=== PATIENT | female | born 1995 | race African-American/Black ===

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

== ENCOUNTER 2017-02-04 11:28 | Inpatient (IN) | payer MEDICAID ==
[2017-02-04] MEDS: PENICILLIN G POTASSIUM 2,500,000 UNIT in DEXTROSE 5%-WATER 50 ML IV SCH ×4 (04:19→21:23)
[2017-02-04 12:14] LABS: AMNISURE (ROM) POSITIVE (NEGATIVE)
[2017-02-04 12:16] LABS: APPEARANCE,URINE SLIGHTLY-CLOUDY; BILIRUBIN,URINE NEGATIVE (NEGATIVE); GLUCOSE, URINE 50 mg/dL (NEGATIVE); KETONES,URINE NEGATIVE (NEGATIVE); LEUKOCYTE ESTERASE,URINE LARGE (NEGATIVE); NITRITE,URINE NEGATIVE (NEGATIVE); PROTEIN,URINE 30 mg/dL (NEGATIVE)
[2017-02-04] MEDS ORDERED: PENICILLIN G-K 5 MILLION UNIT VIAL ONE ×3 (12:17→21:18)
[2017-02-04] MEDS ORDERED: RINGERS SOLUTION,LACTATED 1,000 ML IV PRN (12:17)
[2017-02-04] MEDS ORDERED: PENICILLIN G POTASSIUM 5,000,000 UNIT in DEXTROSE 5%-WATER 100 ML IV ONE (12:17)
[2017-02-04] MEDS ORDERED: LIDOCAINE 1% INJ-PF (10 MG/ML) 30 ML SDV ONE (12:17)
[2017-02-04] MEDS ORDERED: RINGERS SOLUTION,LACTATED 1,000 ML IV ONE (12:17)
[2017-02-04] MEDS ORDERED: OXYTOCIN/NORMAL SALINE 20 UNIT/1,000 ML RTUINJ ONE (12:17)
[2017-02-04] MEDS ORDERED: MISOPROSTOL 0.2 MG TABLET ONE (12:17)
[2017-02-04 12:56] LABS: URINE BARBITURATES SCREEN NEGATIVE; URINE METHADONE SCREEN NEGATIVE; URINE OPIATES LOW NEGATIVE; URINE PHENCYCLIDINE SCREEN NEGATIVE
[2017-02-04 13:17] LABS: ABSOLUTE LYMPHOCYTES (AUTO) 1.5 10^3/uL (0.5-4.7); ABSOLUTE MONOCYTES (AUTO) 0.8 10^3/uL (0.1-1.4); ABSOLUTE NEUT (AUTO) 8.4 10^3/uL (1.7-8.2); BASOPHILS % (AUTO) 0.3 % (0-2); EOSINOPHILS % (AUTO) 0.2 % (0-6); HEMATOCRIT 35.7 % (36.0-47.0); HEMOGLOBIN 11.8 g/dL (12.0-15.5); HGB HCT DIFFERENCE -0.3; LYMPHOCYTES % (AUTO) 14.2 % (13-45); MEAN CORPUSCULAR HEMOGLOBIN 27.2 pg (27.0-33.4); MEAN CORPUSCULAR HGB CONC 33.2 g/dL (32.0-36.0); MEAN CORPUSCULAR VOLUME 82 fl (80-97); MONOCYTES % (AUTO) 7.8 % (3-13); RED BLOOD COUNT 4.36 10^6/uL (3.72-5.28); RED CELL DISTRIBUTION WIDTH 12.7 % (11.5-14.0); SEGMENTED NEUTROPHILS % (AUTO) 77.5 % (42-78); WHITE BLOOD COUNT 10.8 10^3/uL (4.0-10.5)
[2017-02-04] MEDS ORDERED: FENTANYL/BUPIVACAINE/NS/PF 200 MCG/100 ML RTUINJ EPI ONE ×2 (17:47→23:42)
[2017-02-04] MEDS ORDERED: BUPIVACAINE HCL 0.25 % INJ/PF (2.5 MG/1 ML) 30 ML VIAL ONE (17:47)
[2017-02-04] MEDS ORDERED: EPHEDRINE SULFATE INJ 50 MG/1 ML AMPULE ONE (17:47)
[2017-02-04] MEDS ORDERED: FENTANYL CITRATE INJ/PF 100 MCG/2 ML AMPUL ONE (17:48)
--- NOTE | 2017-02-04 23:34 | L&D Progress Notes ---
PROGRESS NOTES Datetime Report Generated by CPN: 02/04/2017 23:34 PROGRESS NOTE Impression: Normal Progression of Labor Impression: Reassuring Heart Rate; Rupture of Membranes Procedures: Sterile Vag Exam Procedures: Sterile Vag Exam Plan: Continue Present Management Plan: Augmentation Plan Other: Hold Pitocin at 1mU for now Vital Signs : Reviewed; Within Normal Limits Vital Signs : Reviewed; Within Normal Limits Comment: FHR 125, moderate variability, cat II, cephalic, external US Comment: FHR 145, moderate variability, +accels, -decels, cat I, External US. VAGINAL EXAM Dilatation: 7 Dilatation: 3 Effacement: 90 Effacement: 90 Station: 0 Station: -2 Contractions: q 2-4 min Contractions: q 1-4 min MEMBRANES Membranes: Ruptured Membranes: Ruptured Amniotic Fluid Color: Clear FETUS A FHR - Baseline: 125 FHR - Baseline: 145 Monitoring: External US Monitoring: External US Variability: Moderate 6-25bpm Variability: Moderate 6-25bpm Accelerations: 10X10 Accelerations: 15X15 Decelerations: None Decelerations: None FHR Category: Category II FHR Category: Category I Presentation: Vertex SIGNATURE SIGNATURE: [id number] Signature: with User ID: [email or web address]
[2017-02-05] MEDS ORDERED: TERBUTALINE SULFATE INJ/PF 1 MG/1 ML SDV ONE (00:16)
[2017-02-05] MEDS ORDERED: TERBUTALINE SULFATE INJ/PF 1 MG/1 ML SDV SUBCUT ONE ×2 (00:27→00:31)
--- NOTE | 2017-02-05 00:36 | L&D Progress Notes ---
PROGRESS NOTES Datetime Report Generated by CPN: 02/05/2017 00:36 PROGRESS NOTE Impression: Normal Progression of Labor Impression Other: Variable decels with contractions Procedures: Sterile Vag Exam Plan Other: Discontinue Pitocin. Given Terb 0.25mg x 1 dose. Vital Signs : Reviewed; Within Normal Limits Comment: FHR 120, moderate variability, variable decels with contractions, cat II. Hold Pitocin for now until FHR recovers. FHR improved with decreasing contraction frequency. Cont to monitor closely. VAGINAL EXAM Dilatation: 7 Effacement: 90 Station: 0 Contractions: q 2-4 min MEMBRANES Membranes: Ruptured FETUS A FHR - Baseline: 120 Monitoring: External US Variability: Moderate 6-25bpm Accelerations: 15X15 Decelerations: Variable FHR Category: Category II FETUS C SIGNATURE: [id number] Signature: with User ID: [email or web address]
[2017-02-05] MEDS ORDERED: METHYLERGONOVINE MALEATE INJ/PF 0.2 MG/1 ML AMPULE ONE (04:52)
[2017-02-05] MEDS ORDERED: CARBOPROST TROMETHAMINE INJ 250 MCG/1 ML AMPULE ONE (04:52)
[2017-02-05] MEDS ORDERED: LOPERAMIDE HCL 2 MG CAPSULE ONE (04:53)
[2017-02-05] MEDS ORDERED: CARBOPROST TROMETHAMINE INJ 250 MCG/1 ML AMPULE IM PRN (05:06)
[2017-02-05] MEDS ORDERED: OXYTOCIN/NORMAL SALINE 20 UNIT/1,000 ML RTUINJ IV PRN (05:06)
[2017-02-05] MEDS ORDERED: MEASLES,MUMPS&RUBELLA VACC/PF 0.5 ML VIAL SUBCUT PRN (05:06)
[2017-02-05] MEDS ORDERED: DIPH/PERTUSS(ACELL)/TETANUS VAC/PF 0.5 ML SYR (>=10YO) IM PRN (05:06)
[2017-02-05] MEDS ORDERED: HYDROCODONE/ACETAMINOPHEN 5-325 MG TABLET PO PRN (05:06)
[2017-02-05] MEDS ORDERED: BENZOCAINE/MENTHOL AEROSOL SPRAY 56 ML TOP PRN (05:06)
[2017-02-05] MEDS ORDERED: ACETAMINOPHEN WITH CODEINE #3 TABLET PO PRN ×2 (05:06)
[2017-02-05] MEDS ORDERED: DIBUCAINE 1% OINTMENT 28 GM TP PRN (05:06)
[2017-02-05] MEDS ORDERED: ZOLPIDEM TARTRATE 5 MG TABLET PO PRN (05:06)
[2017-02-05] MEDS ORDERED: MISOPROSTOL 0.2 MG TABLET PR PRN (05:06)
[2017-02-05] MEDS ORDERED: ONDANSETRON HCL INJ/PF 4 MG/2 ML SDV ONE (05:07)
[2017-02-05] MEDS ORDERED: PROMETHAZINE HCL 25 MG TABLET PO PRN (05:09)
[2017-02-05] MEDS ORDERED: DIPHENHYDRAMINE HCL 25 MG CAPSULE PO PRN (05:10)
[2017-02-05] MEDS ORDERED: ONDANSETRON HCL 8 MG TABLET PO PRN (05:10)
--- NOTE | 2017-02-05 06:48 | Delivery Summary ---
Del Sum A-C Datetime Report Generated by CPN: 02/05/2017 06:47 DELIVERY PERSONNEL DELIVERY PERSONNEL: [id number] Delivery Doctor:: Ximena Wolf MD Labor and Delivery Nurse:: Monse Otero RNbookmobile librarian Nurse:: Ana Woodard RN Nursery Nurse:: Alessandra Braswell RN Nursery Nurse:: Alessandra Torres RN Field Map Editor/ARTS AND CRAFTS TEACHER: Wili Ertel, ARTS AND CRAFTS TEACHER MATERNAL INFORMATION Delivery Anesthesia: Epidural Medications During Delivery: Cytotec, Hemabate Medications After Delivery: Pitocin Bolus-Please Comment Meds After Delivery Comment: hemabate 250 Estimated Blood Loss (ml): 500 Maternal Complications: Premature Rupture of Membranes Provider Comments: Pt C_P. Head delivered OA. Anterior and posterior shoulder delivered followed by rest of body. Baby placed on mom's abdomen. After 1min, cord clamped x 2 and cut. Placenta delivered intact with 3VC. No lacs noted. PPH occurred with 500ml blood loss. Cytotec 1000mcg CA given and Hemabate IM given. Fundus firm and bleeding minimal after aggressive fundal massage. LABOR SUMMARY EDC: 02/06/2017 00:00 No. Babies in Womb: 1 Attempted: No Labor Anesthesia: Epidural LABOR INFORMATION Reason for Induction: Premature Rupture of Membranes Onset of Labor: 02/04/2017 20:58 Complete Dilatation: 02/05/2017 03:13 Oxytocin: Augmentation Group B Beta Strep: positive Antibiotics # of Doses: 3 (Annotations: Data stored by N on behalf of user) Antibiotics Time of Last Dose: 2114 Name of Antibiotic Given: pcn Steroids Given: None Reason Steroids Not Administered: Not Applicable MEMBRANES Membranes Rupture Method: Spontaneous Rupture of Membranes: 02/04/2017 00:01 Length of Rupture (hr): 28.63 Amniotic Fluid Color: Clear Amniotic Fluid Amount: Small Amniotic Fluid Odor: Normal STAGES OF LABOR Stage 1 hr: 6 Stage 1 min: 15 Stage 2 hr: 1 Stage 2 min: 26 Stage 3 hr: 0 Stage 3 min: 3 Total Time in Labor hr: 7 Total Time in Labor min: 44 VAGINAL DELIVERY Episiotomy: None Laceration #1: None Laceration Extension #1: N/A Laceration Repair: Not Applicable Sponge Count Correct: N/A Sharps Count Correct: N/A CSECTION DELIVERY Primary Indication: N/A Secondary Indication: N/A CSection Incidence: N/A Labor: N/A Elective: N/A CSection Incision: N/A BABY A INFORMATION Infant Delivery Date/Time: 02/05/2017 04:39 Method of Delivery: Vaginal Born in Route : No : N/A Forceps: N/A Vacuum Extraction: N/A Shoulder Dystocia : No PRESENTATION/POSITION BABY A Presentation: Cephalic Cephalic Presentation: Vertex Vertex Position: Right Occipital Anterior Breech Presentation: N/A PLACENTA INFORMATION BABY A Placenta Delivery Time : 02/05/2017 04:42 Placenta Method of Delivery: Spontaneous Placenta Status: Delivered SCORES BABY A Heart Rate 1 min: >100 bpm Resp Effort 1 min: Good Cry Reflex Irritability 1 min: Cough or Sneeze or Pulls Away Muscle Tone 1 min: Active Motion Color 1 min: Body [place], Extremities Blue SCORE 1 MIN: 9 Heart Rate 5 min: >100 bpm Resp Effort 5 min: Good Cry Reflex Irritability 5 min: Cough or Sneeze or Pulls Away Muscle Tone 5 min: Active Motion Color 5 min: Body [place], Extremities Blue SCORE 5 MIN: 9 INFORMATION BABY A Gestational Age at Delivery: 39.6 Gestational Status: Full Term- 39- 40.6 Weeks Outcome : Liveborn Condition : Stable Sex: Male IDENTIFICATION BABY A Infant Verification Date/Time: 02/05/2017 04:44 ID Band Number: [id number] Mother's Name Verified: Yes RN Verifying : Becky Del Real RN Additional Verifying Personnel: Shanique David RN WEIGHT/LENGTH BABY A Birthweight (gm): 3150 Infant Weight (lb): 6 Weight (oz): 15 Length (in): 21.25 Length (cm): 53.98 CORD INFORMATION BABY A No. Cord Vessels: 3 Nuchal Cord : N/A Cord Blood Taken: Yes-For Eval (Mom's Blood Type - or O+) Suction: Mouth; Nose ASSESSMENT BABY A Complications: Multiple Late Decels Physical Findings at Delivery: Caput Succedaneum; Molding of the Head Infant Respirations: Appears Normal Skin to Skin: Yes Supervisor Assembling/ALS Called : No Infant Care By: Gerald Ring RN, L Torres RN Transferred To: Remains with Mother SIGNATURES Signature: with User ID: [email or web address]
--- NOTE | 2017-02-05 07:25 | Admission Physical ---
Datetime Report Generated by CPN: 02/05/2017 07:25 CURRENT ADMISSION Chief Complaint: Suspected Ruptured Membranes Indication for Induction: Not Applicable Indication for Induction: Term, Intrauterine ; No Active Labor; Ruptured Membranes Admit Plan: Admit to Unit; Initiate Labor Protocol; Initiate Labor Augmentation Protocol ALLERGIES Medication Allergies: Yes Medication Allergies: tramadol HCl (12/31/2016) Medication Allergies: tramadol HCl (04/24/2016) Latex: No Latex Allergies Food Allergies: N/A Environmental Allergies: Dust/Pollen OBSTETRICAL HISTORY EDC: 02/06/2017 00:00 : 1 Para: 0 Term: 0 : 0 SAB: 0 IAB: 0 Ectopic: 0 Livin Cesareans: 0 VBACs: 0 Multiple Births: 0 Gestational Diabetes: No Rh Sensitization: No Incompetent Cervix: No JUAN: No Infertility: No ART Treatment: No Uterine Anomaly: No IUGR: No Hx Previous C/S: No Macrosomia: No Hx Loss/Stillborn: No PIH: No Hx : No Placenta Previa/Abruption: No Depression/PP Depression: No PTL/PROM: No Post Hemorrhage: No Current Procedures: Ultrasound Obstetrical History Comments: G1--current SEE RECORDS Alcohol: No Marijuana : No Cocaine: No Other Illicit Drugs: No Cigarettes: Former Smoker. [id number] Cigarette Frequency: > 10 per day Cigarette Comments: quit May 2016--smoked a PPD x 5 months MEDICAL HISTORY Diabetes: No Blood Transfusion: No Pulmonary Disease (Asthma, TB): No Breast Disease: No Hypertension: No Stump Blower Surgery: No Heart Disease: No Hosp/Surgery: No Autoimmune Disorder: No Anesthetic Complications: No Kidney Disease: No Abnormal Pap Smear: No Neuro/Epilepsy: No Psychiatric Disorders: No Other Medical Diseases: No Hepatitis/Liver Disease: No Significant Family History: Yes Varicosities/Phlebitis: No Trauma/Violence : No Thyroid Dysfunction: No INFECTIOUS HISTORY Gonorrhea: No Genital Herpes: No Chlamydia: No Tuberculosis: No Syphilis: No Hepatitis: No HIV/AIDS Exposure: No Rash or Viral Illness: No HPV: No PHYSICAL EXAM General: Normal HEENT: Normal Neurologic: Normal Heart: Normal Lungs: Normal Abdomen: Normal Genitourinary Exam: Normal Extremities: Normal Pelvic Type: Adequate Vital Signs: Reviewed; Within Normal Limits VAGINAL EXAM Dilatation: 7 Dilatation: 7 Dilatation: 3 Effacement: 90 Effacement: 90 Effacement: 90 Station: 0 Station: 0 Station: -2 Contraction Comments: q 2-4 min Contraction Comments: q 2-4 min Contraction Comments: q 1-4 min MEMBRANES Membranes: Ruptured Membranes: Ruptured Membranes: Ruptured Amniotic Fluid Color: Clear FETUS A EGA: 39.5 Monitoring: External US FHR- Baseline: 145 Variability: Moderate 6-25bpm Accelerations: 15X15 Decelerations: None FHR Category: Category I Presentation: Vertex PLANS FOR LABOR AND DELIVERY Labor and Delivery: None Pain Management: Natural Feeding Preference: Formula Benefit of Breast Feed Discussed: Yes Circumcision: Yes INFORMED CONSENT Signature: with User ID: [email or web address] Signature: with User ID: [email or web address] Signature: with User ID: [email or web address] Signature: with User ID: LLee : with User ID: LLee : with User ID: Stan : with User ID: Stan
[2017-02-05] MEDS: IBUPROFEN 800 MG TABLET PO SCH ×3 (08:46→21:50)
[2017-02-05] MEDS: PRENATAL VITAMIN W DHA CAPSULE PO SCH (09:13)
[2017-02-05] MEDS: FAMOTIDINE 20 MG TABLET PO PRN ×2 (09:13→21:50)
[2017-02-05] MEDS: SENNOSIDES/DOCUSATE 8.6-50 MG 1 EACH TABLET PO SCH (09:14)
[2017-02-05] MEDS: DOCUSATE SODIUM 100 MG CAPSULE PO SCH ×2 (09:14→17:07)
[2017-02-05] MEDS: FERROUS SULFATE 325 MG TABLET PO SCH ×2 (09:14→17:07)
[2017-02-06] MEDS: IBUPROFEN 800 MG TABLET PO SCH ×3 (05:03→21:34)
[2017-02-06 08:30] LABS: HEMATOCRIT 30.6 % (36.0-47.0); HEMOGLOBIN 9.9 g/dL (12.0-15.5); HGB HCT DIFFERENCE -0.9; MEAN CORPUSCULAR HEMOGLOBIN 26.8 pg (27.0-33.4); MEAN CORPUSCULAR HGB CONC 32.5 g/dL (32.0-36.0); MEAN CORPUSCULAR VOLUME 82 fl (80-97); RED BLOOD COUNT 3.72 10^6/uL (3.72-5.28); RED CELL DISTRIBUTION WIDTH 12.9 % (11.5-14.0); WHITE BLOOD COUNT 19.3 10^3/uL (4.0-10.5)
[2017-02-06] MEDS: PRENATAL VITAMIN W DHA CAPSULE PO SCH (09:28)
[2017-02-06] MEDS: DOCUSATE SODIUM 100 MG CAPSULE PO SCH ×2 (09:28→17:30)
[2017-02-06] MEDS: SENNOSIDES/DOCUSATE 8.6-50 MG 1 EACH TABLET PO SCH (09:28)
[2017-02-06] MEDS: FAMOTIDINE 20 MG TABLET PO PRN ×2 (09:28→21:33)
[2017-02-06] MEDS: FERROUS SULFATE 325 MG TABLET PO SCH ×2 (09:28→17:30)
--- NOTE | 2017-02-06 14:45 | PDOC PROGRESS REPORT ---
Subjective-OB Subjective: Post Delivery Day:1 21 year old G1 now P1 s/p ppd1. Ambulating and voiding without difficulty. Denies shortness of breath, dizziness or any needs at this time Physical Exam (OB) Vital Signs: Temp Pulse Resp BP Pulse Ox 98.2 F 61 15 103/61 100 02/06/17 07:44 02/06/17 07:44 02/06/17 07:44 02/06/17 07:44 02/06/17 07:44 Intake & Output 02/05/17 02/06/17 02/07/17 06:59 06:59 06:59 Intake Total 600 Balance 600 Weight 82.809 kg - General General Appearance: Appears well In distress: None - PIH/Pre-Eclampsia Headache: Absent Epigastric Pain: No Visual Changes: No - Episiotomy/Laceration Site Condition: N/A - Lochia Lochia Amount: Scant < 10 ml Lochia Color: Rubra/Red - Abdomen Description: Soft, Round Hernia Present: No Fundal Description: Firm, Midline Fundal Height: u/u - u/2 - Respiratory Respiratory Status: No respiratory distress - Extremities Upper extremity: Normal inspection Lower extremities: Normal inspection - Neurological Cognition: Normal Orientation: AAOx4 - Psychological Associated symptoms: Normal affect, Normal mood Objective-Diagnostic Laboratory: 02/06/17 08:23 02/06/17 08:23 WBC 19.3 H RBC 3.72 Hgb 9.9 L Hct 30.6 L MCV 82 MCH 26.8 L MCHC 32.5 RDW 12.9 Plt Count 155 Assessment and Plan(PN) - Assessment and Plan (1) Vaginal delivery Is this a current diagnosis for this admission?: Yes Plan: routine pp care (2) Acute blood loss anemia Is this a current diagnosis for this admission?: Yes Plan: increase dietary iron and feso4 bid (3) hemorrhage Qualifiers: hemorrhage type: unspecified Qualified Code(s): O72.1 - Other immediate hemorrhage Is this a current diagnosis for this admission?: Yes Plan: continue to monitor for need of blood products or inc. bleeding - Time Spent with Patient Time with patient: Less than 15 minutes Medications reviewed and adjusted accordingly: Yes - Disposition Anticipated Discharge: Home Within: within 24 hours
[2017-02-07] MEDS: IBUPROFEN 800 MG TABLET PO SCH (06:06)
[2017-02-07 08:01] VITALS: BP 116/72
[2017-02-07] MEDS: FERROUS SULFATE 325 MG TABLET PO SCH (09:46)
[2017-02-07] MEDS: SENNOSIDES/DOCUSATE 8.6-50 MG 1 EACH TABLET PO SCH (09:46)
[2017-02-07] MEDS: DOCUSATE SODIUM 100 MG CAPSULE PO SCH (09:47)
[2017-02-07] MEDS: PRENATAL VITAMIN W DHA CAPSULE PO SCH (09:48)
[2017-02-07] MEDS: FAMOTIDINE 20 MG TABLET PO PRN (09:48)
--- NOTE | 2017-02-07 10:30 | PDOC DISCHARGE SUMMARY ---
Final Diagnosis Discharge Date: 02/07/17 - Final Diagnosis (1) Acute blood loss anemia Is this a current diagnosis for this admission?: Yes (2) hemorrhage Is this a current diagnosis for this admission?: Yes (3) Vaginal delivery Is this a current diagnosis for this admission?: Yes Discharge Data - Discharge Medication Home Medications: No122/Iron/Folic Acid [ Multi Tablet] 1 tab PO DAILY 11/25/16 Docusate Sodium [Colace 100 mg Capsule] 100 mg PO BID #60 capsule 02/07/17 Ferrous Sulfate [Feosol 325 mg Tablet] 325 mg PO BID #60 tablet 02/07/17 Ibuprofen [Motrin 800 mg Tablet] 800 mg PO Q8 #60 tablet 02/07/17 Gestational Age: 39.6 Reason(s) for Admission: PROM Procedures: NST Intrapartum Procedure(s): Spontaneous Vaginal Delivery - Data Baby 1 Male at 1 minute: 9 at 5 minutes: 9 Weight: 3150 kg Home with Mother: Yes Complications: No - Diagnosis Test Laboratory: Temp Pulse Resp BP Pulse Ox 97.5 F 60 15 116/72 100 02/07/17 08:39 02/07/17 08:39 02/07/17 08:39 02/07/17 07:27 02/07/17 08:39 02/04/17 02/04/17 02/06/17 11:52 12:53 08:23 RBC 4.36 3.72 Hgb 11.8 L 9.9 L Hct 35.7 L 30.6 L Urine Opiates Screen NEGATIVE - Discharge information/Instructions Discharge Activity: Activity As Tolerated, No Lifting Over 10 Pounds, No Lifting /Push/Pulling, Pelvic Rest, No tub bath Discharge Diet: Regular Disposition: HOME, SELF-CARE Follow up with: [facility] in: 4, Weeks
== END 2017-02-07 12:34 | disposition home or self-care (01) | DRG 774 ==
LOC: LC 11:28 → LR 12:20 → 2S 02-05 07:02
PROVIDERS: ADMIT Obstetrics & Gynecology; ATTEND Obstetrics & Gynecology
PROC: 10E0XZZ Delivery of Products of Conception, External Approach (ICD-10-PCS; principal; 2017-02-05)
PROC: 4A1HXCZ Monitoring of Products of Conception, Cardiac Rate, External Approach (ICD-10-PCS; 2017-02-05)
DX: O42.12 Full-term premature rupture of membranes, onset of labor more than 24 hours following rupture (principal); O72.1 Other immediate postpartum hemorrhage; D62 Acute posthemorrhagic anemia; O76 Abnormality in fetal heart rate and rhythm complicating labor and delivery; O99.02 Anemia complicating childbirth; O99.824 Streptococcus B carrier state complicating childbirth; Z37.0 Single live birth; Z3A.39 39 weeks gestation of pregnancy
CPT/HCPCS: 36415; 80307; 81005; 84112; 85025; 85027; 86592; 86850; 86900; 86901; J2210; J2405; J2540; J2590; J3010; J3105; J3490

== ENCOUNTER 2017-05-14 12:52 | Emergency (ER) | payer MEDICAID ==
[2017-05-14] MEDS ORDERED: HYDROCODONE/ACETAMINOPHEN 5-325 MG TABLET PO ONE (14:36)
[2017-05-14 15:08] LABS: APPEARANCE,URINE SLIGHTLY-CLOUDY; BILIRUBIN,URINE NEGATIVE (NEGATIVE); COLOR,URINE YELLOW; GLUCOSE, URINE NEGATIVE (NEGATIVE); KETONES,URINE NEGATIVE (NEGATIVE); LEUKOCYTE ESTERASE,URINE LARGE (NEGATIVE); NITRITE,URINE NEGATIVE (NEGATIVE); PROTEIN,URINE 30 mg/dL (NEGATIVE); URINE SPECIFIC GRAVITY 1.032
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
[2017-05-14] MEDS ORDERED: TETRACAINE HCL 0.5% OPH SOLN 2 ML OU ONE (16:45)
[2017-05-14] MEDS ORDERED: HYDROCODONE/ACETAMINOPHEN 5-325 MG (6 TAB/ER DISP) PO PRN (17:37)
[2017-05-14] MEDS ORDERED: NITROFURANTOIN MONOHYD/M-CRYST 100 MG CAPSULE PO ONE (17:37)
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
[2017-05-14] MEDS ORDERED: ERYTHROMYCIN 0.5% OPH OINTMENT 3.5 GM (ER DISP) OS SCH (18:00)
[2017-05-14 18:42] VITALS: BP 119/62
== END 2017-05-14 18:38 | disposition home or self-care (01) ==
LOC: ER 12:52
DX: S05.02XA Injury of conjunctiva and corneal abrasion without foreign body, left eye, initial encounter (principal); H11.33 Conjunctival hemorrhage, bilateral; N39.0 Urinary tract infection, site not specified; M54.2 Cervicalgia; R51 Headache; Y04.0XXA Assault by unarmed brawl or fight, initial encounter
CPT/HCPCS: 99284; 87086; 81025; 81001; 70486; J3490 ×2; J8499

== ENCOUNTER 2019-05-07 11:48 | Emergency (ER) | payer MEDICAID ==
[2019-05-07 12:30] VITALS: BP 108/61
[2019-05-07 13:25] LABS: ABSOLUTE LYMPHOCYTES (AUTO) 1.4 10^3/uL (0.5-4.7); ABSOLUTE MONOCYTES (AUTO) 0.7 10^3/uL (0.1-1.4); ABSOLUTE NEUT (AUTO) 4.2 10^3/uL (1.7-8.2); BASOPHILS % (AUTO) 0.4 % (0-2); EOSINOPHILS % (AUTO) 0.1 % (0-6); HEMATOCRIT 39.6 % (36.0-47.0); LYMPHOCYTES % (AUTO) 22.4 % (13-45); MEAN CORPUSCULAR HEMOGLOBIN 26.3 pg (27.0-33.4); MEAN CORPUSCULAR HGB CONC 32.8 g/dL (32.0-36.0); MEAN CORPUSCULAR VOLUME 80 fl (80-97); MONOCYTES % (AUTO) 11.1 % (3-13); RED BLOOD COUNT 4.93 10^6/uL (3.72-5.28); RED CELL DISTRIBUTION WIDTH 13.3 % (11.5-14.0); TOTAL CELLS COUNTED % (AUTO) 100 %; WHITE BLOOD COUNT 6.4 10^3/uL (4.0-10.5)
[2019-05-07 13:32] LABS: APPEARANCE,URINE SLIGHTLY-CLOUDY; BILIRUBIN,URINE NEGATIVE (NEGATIVE); COLOR,URINE YELLOW; GLUCOSE, URINE 50 mg/dL (NEGATIVE); KETONES,URINE NEGATIVE (NEGATIVE); LEUKOCYTE ESTERASE,URINE LARGE (NEGATIVE); NITRITE,URINE NEGATIVE (NEGATIVE); PROTEIN,URINE 30 mg/dL (NEGATIVE); URINE SPECIFIC GRAVITY 1.024
[2019-05-07 13:45] LABS: ALBUMIN 4.1 g/dL (3.5-5.0); ALKALINE PHOSPHATASE 36 U/L (38-126); ANION GAP 7 (5-19); ASPARTATE AMINO TRANSFERASE 15 U/L (14-36); BLOOD UREA NITROGEN 8 mg/dL (7-20); CALCIUM 9.5 mg/dL (8.4-10.2); CARBON DIOXIDE 28 mmol/L (22-30); CHLORIDE 101 mmol/L (98-107); GLUCOSE 89 mg/dL (75-110); POTASSIUM 4.1 mmol/L (3.6-5.0); TOTAL PROTEIN 7.1 g/dL (6.3-8.2)
--- NOTE | 2019-05-07 14:08 | ER Document Report ---
ED General - General Chief Complaint: Abdominal Pain Stated Complaint: ABDOMINAL CRAMPING Time Seen by Provider: 05/07/19 12:45 Primary Care Provider: EVELINE COX DO [Primary Care Provider] - Follow up in 1 week Mode of Arrival: Ambulatory Information source: Patient Notes: This 23-year-old female presents emergency department with complaints of nausea vomiting for the past 3 weeks. Also reports she has pain when she lays on her abdomen. She denies pain with void. She denies vaginal discharge denies vaginal bleeding. Patient reports that she was just at [facility] to obtain her Depakote shot. She reports she had a urine test and it was discovered that she was . She also reports they did ultrasound and told her she was approximately 6 months . Patient reports she has not had her double shot in 1 year. Is not sure when she has had her last menses. Patient reports she is G1, P1. TRAVEL OUTSIDE OF THE [place] IN LAST 30 DAYS: No - HPI Onset: Other Onset/Duration: Persistent Quality of pain: Cramping Associated symptoms: Nausea, Vomiting Exacerbated by: Denies Relieved by: Denies Similar symptoms previously: Yes Recently seen / treated by doctor: Yes - Related Data Allergies/Adverse Reactions: tramadol HCl [From [facility]] Allergy (Verified 05/14/17 12:56) Past Medical History - General Information source: Patient Last Menstrual Period: Unsure - Social History Smoking Status: Unknown if Ever Smoked Cigarette use (# per day): No Frequency of alcohol use: None Drug Abuse: None Lives with: Family Family History: Arthritis, CVA, DM, Hyperlipidemia, Hypertension, Other - asthma- mother Patient has suicidal ideation: No Patient has homicidal ideation: No Renal/ Medical History: Denies: Hx Peritoneal Dialysis Psychiatric Medical History: Reports: Hx Attention Deficit Hyperactivity Disorder - not on medicatios right now, 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 EYES: Pupils equal round and reactive to light, extraocular movements intact, sclera anicteric, conjunctiva are normal. ENT: nares patent, Moist mucous membranes. NECK: Normal range of motion, supple without lymphadenopathy LUNGS: CTAB and equal. No wheezes rales or rhonchi. HEART: Regular rate and rhythm without murmurs ABDOMEN: Soft, no tenderness with palpation. No guarding, no rebound EXTREMITIES: Normal range of motion, BACK: Denies pain. NEUROLOGICAL: Cranial nerves grossly intact. PSYCH: Normal mood, normal affect. SKIN: Warm, Dry, normal turgor, Course - Re-evaluation Re-evalutation: 05/07/19 15:14 23-year-old female presents emergency department very upset. Reports she went to get [facility] Dep[facility] shot [facility] and was told she was . Patient reports she has not had the Depo shot in 1 year. She also reports she is not sure when she had her last menstrual period. Labs unremarkable, ultrasound does show she is approximately 7 weeks . Patient is sitting up in bed eating chips and crackers and peanut butter. She denies vomiting at this time. She was instructed all results. Instructed on the importance of follow-up for care. She verbalized understanding to all instructions. Laboratory 05/07/19 05/07/19 05/07/19 13:05 13:05 13:05 WBC 6.4 RBC 4.93 Hgb 13.0 Hct 39.6 MCV 80 MCH 26.3 L MCHC 32.8 RDW 13.3 Plt Count 219 Lymph % (Auto) 22.4 [place] % (Auto) 11.1 Eos % (Auto) 0.1 Baso % (Auto) 0.4 Absolute Neuts (auto) 4.2 Absolute Lymphs (auto) 1.4 Absolute Monos (auto) 0.7 Absolute Eos (auto) 0.0 Absolute Basos (auto) 0.0 Seg Neutrophils % 66.0 Sodium 136.1 L Potassium 4.1 Chloride 101 Carbon Dioxide 28 Anion Gap 7 BUN 8 Creatinine 0.54 Est GFR ( Amer) > 60 Est GFR (MDRD) Non-Af > 60 Glucose 89 Calcium 9.5 Total Bilirubin 1.0 Direct Bilirubin 0.0 Neonat Total Bilirubin Not Reportable Neonat Direct Bilirubin Not Reportable Neonat Indirect Bili Not Reportable AST 15 ALT 21 Alkaline Phosphatase 36 L Total Protein 7.1 Albumin 4.1 Lipase 30.3 Beta HCG, Quant 83978.00 H Total Beta HCG POSITIVE Urine Color YELLOW Urine Appearance SLIGHTLY-CLOUDY Urine pH 6.0 Ur Specific Gleason 1.024 Urine Protein 30 H Urine Glucose (UA) 50 H Urine Ketones NEGATIVE Urine Blood SMALL H Urine Nitrite NEGATIVE Urine Bilirubin NEGATIVE Urine Urobilinogen 4.0 H Ur Leukocyte Esterase LARGE H Urine WBC (Auto) 76 Urine RBC (Auto) 31 Urine Bacteria (Auto) TRACE Squamous Epi Cells Auto 4 Urine Mucus (Auto) MANY Urine Ascorbic Acid NEGATIVE Obstetrics Ultrasound 05/07/19 12:47 IMPRESSION: LIVING INTRAUTERINE . EGA 7 weeks 2 days Trimester of : First trimester - 0 to 13 weeks. - Vital Signs Vital signs: Temp Pulse Resp BP Pulse Ox 98.5 F 76 16 108/61 100 05/07/19 12:28 05/07/19 12:28 05/07/19 12:28 05/07/19 12:28 05/07/19 12:28 - Laboratory Result Diagrams: 05/07/19 13:05 05/07/19 13:05 Laboratory results interpreted by me: 05/07/19 05/07/19 05/07/19 13:05 13:05 13:05 MCH 26.3 L Sodium 136.1 L Alkaline Phosphatase 36 L Beta HCG, Quant 61787.00 H Urine Protein 30 H Urine Glucose (UA) 50 H Urine Blood SMALL H Urine Urobilinogen 4.0 H Ur Leukocyte Esterase LARGE H - Diagnostic Test Radiology reviewed: Image reviewed, Reports reviewed Discharge - Discharge Clinical Impression: Abdominal pain Qualifiers: Abdominal location: generalized Qualified Code(s): R10.84 - Generalized abdominal pain Qualifiers: Weeks of gestation: less than 8 weeks Qualified Code(s): Z3A.01 - Less than 8 weeks gestation of UTI (urinary tract infection) Qualifiers: Urinary tract infection type: site unspecified Hematuria presence: with hematu silvia Qualified Code(s): N39.0 - Urinary tract infection, site not specified Condition: Stable Disposition: HOME, SELF-CARE Instructions: Abdominal Pain ([facility]), Antinausea Medication ([facility]), Cephalexin ([facility]), [facility], ([facility]), Urinary Tract Infection ([facility]) Additional Instructions: *You have been evaluated for abdominal pain, nausea, vomiting, UTI, Your ultrasound showed you are approximately 7 weeks 1 day *Take medication as prescribed for your UTI *Follow up with a primary care provider/[facility]/or the health department within 1 week for recheck *Return to ED for worsening condition, changes, needs, severe abdominal pain, vaginal bleeding Prescriptions: Cephalexin Monohydrate [Keflex 250 Mg Capsule] 250 mg PO QID #20 capsule Promethazine HCl [Phenergan 25 mg Tablet] 25 - 50 mg PO ASDIR PRN #12 tablet PRN Reason: Referrals: EVELINE COX DO [Primary Care Provider] - Follow up in 1 week
[2019-05-07 14:10] LABS: PLATELET COUNT 219 10^3/uL (150-450)
--- NOTE | 2019-05-07 15:02 | RADIOLOGY REPORT (SQ) ---
EXAM DESCRIPTION: U/S OB TRANSVAGINAL W/O DOP COMPLETED DATE/TIME: 05/07/2019 2:02 pm REASON FOR STUDY: abd pain, COMPARISON: No previous this TECHNIQUE: Endovaginal static and realtime grayscale images acquired of the pelvis. Additional selec christaino spectral and color Doppler images recorded. All images stored on PACs. bHCG: Not available CLINICAL DATES: Unknown LIMITATIONS: None. FINDINGS: FETUS: Single Living intrauterine . ULTRASOUND EGA: 7 weeks 2 days ULTRASOUND VERONICA: 12/22/2019 EFW: Not calculated CRL: 1.2 cm FHR: 152 beats per minute. SURVEY: Too early to assess AMNIOTIC FLUID: Adequate amount. PLACENTA: Not yet developed due to early gestation. SUBCHORIONIC BLEED: Yes SIZE OF BLEED: 1.4 x 1.4 cm UTERUS: No masses. No anomalies. Uterus is 9 x 7 x 7 cm in size. CERVICAL LENGTH: 2.7 cm. Closed. RIGHT ADNEXA: Not visualized due to adnexal bowel gas. No adnexal free fluid. No adnexal masses. LEFT ADNEXA: Not visualized due to adnexal bowel gas. No adnexal free fluid. No adnexal masses. FREE FLUID: None. OTHER: No other significant finding. IMPRESSION: LIVING INTRAUTERINE . EGA 7 weeks 2 days Trimester of : First trimester - 0 to 13 weeks. TECHNICAL DOCUMENTATION: JOB ID: [id number] 2011 [employer]- All Rights Reserved rev Reading location - IP/workstation name: [email or web address]
== END 2019-05-07 15:30 | disposition home or self-care (01) ==
LOC: ER 11:48
DX: O23.41 Unspecified infection of urinary tract in pregnancy, first trimester (principal); O26.91 Pregnancy related conditions, unspecified, first trimester; R10.84 Generalized abdominal pain; Z3A.01 Less than 8 weeks gestation of pregnancy
CPT/HCPCS: 36415; 76817; 80053; 81001; 83690; 84702; 85025; 99284

== ENCOUNTER 2019-12-14 15:22 | Outpatient (CLI) | payer MEDICAID ==
[2019-12-14 16:13] LABS: BACTERIA (WET MOUNT) 4+ BACTERIA SEEN; EPITHELIALS (WET MOUNT) 3+ EPITHELIALS SEEN; RBCS (WET MOUNT) RARE RBCS SEEN; T.VAGINALIS (WET MOUNT) TRICHOMONAS SEEN; WBCS (WET MOUNT) 1+ WBCS SEEN; YEAST (WET MOUNT) NO YEAST SEEN
[2019-12-14 16:16] LABS: APPEARANCE,URINE SLIGHTLY-CLOUDY; BILIRUBIN,URINE NEGATIVE (NEGATIVE); COLOR,URINE YELLOW; GLUCOSE, URINE NEGATIVE (NEGATIVE); KETONES,URINE NEGATIVE (NEGATIVE); LEUKOCYTE ESTERASE,URINE LARGE (NEGATIVE); NITRITE,URINE NEGATIVE (NEGATIVE); PROTEIN,URINE NEGATIVE (NEGATIVE)
[2019-12-14] MEDS ORDERED: METRONIDAZOLE 500 MG TABLET PO ONE (16:28)
[2019-12-14] MEDS ORDERED: METRONIDAZOLE 500 MG TABLET ONE (16:32)
--- NOTE | 2019-12-14 16:32 | Non Stress Test Report ---
Non Stress Test Datetime Report Generated by CPN: 12/14/2019 16:32 DEMOGRAPHIC Test Number: 1 EGA NST: 38.6 INDICATION Indication for Study (NST) Other: ctx, vaginal discharge MONITORING Monitor Explained: Monitor Explained; Test Explained; Patient Verbalized Understanding Time on Monitor: 12/14/2019 15:40 Time off Monitor: 12/14/2019 16:24 NST Duration: 44 NST INTERVENTIONS NST Interventions: None Physician Notified NST: Dr Isak BABY A: [id number] BABY A Movement : Present Contraction Frequency : Irregular FHR Baseline : 135 Accelerations : 15X15 Decelerations : None Variability : Moderate 6-25bpm NST Review: Meets Criteria for Reactive NST NST Review and Verified By : TMartin,RN NST Results: Reactive NST REPORT Report Trigger: Send Report
[2019-12-14 16:49] LABS: URINE AMPHETAMINES SCREEN NEGATIVE; URINE BARBITURATES SCREEN NEGATIVE; URINE BENZODIAZEPINES SCREEN NEGATIVE; URINE COCAINE SCREEN NEGATIVE; URINE MARIJUANA (THC) SCREEN NEGATIVE; URINE METHADONE SCREEN NEGATIVE; URINE PHENCYCLIDINE SCREEN NEGATIVE
[2019-12-14 17:39] LABS: CHLAM PCR NOT DETECTED (NOT DETECT)
== END 2019-12-14 17:00 | disposition home or self-care (01) ==
LOC: LC 15:22
PROVIDERS: ATTEND Obstetrics & Gynecology
DX: O98.313 Other infections with a predominantly sexual mode of transmission complicating pregnancy, third trimester (principal); A59.01 Trichomonal vulvovaginitis; Z3A.38 38 weeks gestation of pregnancy
CPT/HCPCS: 59025; 87210; 81005; 80307; 87491; 87591; J3490

== ENCOUNTER 2019-12-18 05:31 | Inpatient (IN) | payer MEDICAID ==
[2019-12-18 06:29] LABS: APPEARANCE,URINE SLIGHTLY-CLOUDY; BILIRUBIN,URINE NEGATIVE (NEGATIVE); COLOR,URINE YELLOW; GLUCOSE, URINE NEGATIVE (NEGATIVE); KETONES,URINE NEGATIVE (NEGATIVE); LEUKOCYTE ESTERASE,URINE TRACE (NEGATIVE); NITRITE,URINE NEGATIVE (NEGATIVE); PROTEIN,URINE NEGATIVE (NEGATIVE); URINE SPECIFIC GRAVITY 1.008; UROBILINOGEN,URINE NEGATIVE mg/dL (<2.0)
[2019-12-18 06:44] LABS: URINE AMPHETAMINES SCREEN NEGATIVE; URINE BARBITURATES SCREEN NEGATIVE; URINE BENZODIAZEPINES SCREEN NEGATIVE; URINE COCAINE SCREEN NEGATIVE; URINE MARIJUANA (THC) SCREEN NEGATIVE; URINE METHADONE SCREEN NEGATIVE; URINE PHENCYCLIDINE SCREEN NEGATIVE
[2019-12-18] MEDS ORDERED: PENICILLIN G-K 5 MILLION UNIT VIAL ONE (08:20)
[2019-12-18] MEDS ORDERED: PENICILLIN G POTASSIUM 5,000,000 UNIT in DEXTROSE 5%-WATER 100 ML IV ONE (08:21)
[2019-12-18] MEDS ORDERED: RINGERS SOLUTION,LACTATED 1,000 ML IV ONE (08:21)
[2019-12-18] MEDS ORDERED: OXYTOCIN 10 UNIT/ML VIAL ONE (08:26)
[2019-12-18] MEDS ORDERED: LIDOCAINE 1% INJ-PF (10 MG/ML) 30 ML SDV ONE (08:26)
[2019-12-18] MEDS ORDERED: OXYTOCIN/0.9 % SODIUM CHLORIDE 30 UNIT/500 ML RTUINJ ONE ×2 (08:26→20:59)
[2019-12-18] MEDS ORDERED: MISOPROSTOL 0.2 MG TABLET ONE (08:26)
--- NOTE | 2019-12-18 08:48 | Admission Physical ---
Datetime Report Generated by CPN: 12/18/2019 08:48 CURRENT ADMISSION Hx Assessment: The History has been Reviewed and is Current Chief Complaint: Uterine Contractions Indication for Induction: Not Applicable Admit Impression : Term, Intrauterine ; Active Labor Admit Plan: Admit to Unit; Initiate Labor Protocol ALLERGIES Medication Allergies: Yes Medication Allergies: tramadol HCl/SV/Anaphylaxis (12/18/2019) Latex: No Latex Allergies Food Allergies: n/a Environmental Allergies: n/a OBSTETRICAL HISTORY EDC: 12/22/2019 00:00 : 2 Para: 1 Term: 1 : 0 SAB: 0 IAB: 0 Ectopic: 0 Livin Cesareans: 0 VBACs: 0 Multiple Births: 0 Depression/PP Depression: Yes Current Procedures: Ultrasound Obstetrical History Comments: G1-, epidural, 02/05/2017 SEE RECORDS Alcohol: No Marijuana : No Cocaine: No Other Illicit Drugs: No Cigarettes: Never Smoker. [id number] MEDICAL HISTORY Psychiatric Disorders: Yes Medical History Comments: anxiety, depression, bipolar, ADHD (Annotations: Data stored by CPN on behalf of user) INFECTIOUS HISTORY Infectious History Comments: hx Trich 2/25/20, BLAZE 05/24/2019. Positive Trich 12/14/2019 PHYSICAL EXAM General: Normal Heart: Normal Lungs: Normal Extremities: Normal Pelvic Type: Adequate Physical Exam Comments: pelvis proven to 7lbs 6oz Vital Signs: Reviewed; Within Normal Limits VAGINAL EXAM Contraction Comments: 3-5 MEMBRANES Membranes: Bulging FETUS A EGA: 39.3 Monitoring: External US Presentation: Vertex Admit Comment: 24yo @ 39w3d into L_D with contractions, pt was found to be 1cm on arrival then allowed to walk and now 4cm. Pt is O pos, RI, GBS positive. Decision was made to admit patient and 1st dose of PCN is being given for GBS prophylaxis at this time. Significant medical hx includes ADHD, bipolar disoder, depression and also complicated by trichomonas infection x2 (last treated 12/14/19) and excessive wt gain. May have epidural prn, anticipate delivery PLANS FOR LABOR AND DELIVERY Pain Management: Epidural Feeding Preference: Breast Benefit of Breast Feed Discussed: Yes Circumcision: Yes INFORMED CONSENT Assignment: Mattie Mahoney MD Signature: with User ID: Dasia : with User ID: Dasia
[2019-12-18 09:12] LABS: ABSOLUTE BASOPHILS # (AUTO) 0.1 10^3/uL (0.0-0.2); ABSOLUTE LYMPHOCYTES (AUTO) 1.3 10^3/uL (0.5-4.7); BASOPHILS % (AUTO) 0.6 % (0-2); EOSINOPHILS % (AUTO) 0.2 % (0-6); HEMATOCRIT 35.4 % (36.0-47.0); HEMOGLOBIN 11.7 g/dL (12.0-15.5); LYMPHOCYTES % (AUTO) 11.3 % (13-45); MEAN CORPUSCULAR HGB CONC 32.9 g/dL (32.0-36.0); MEAN CORPUSCULAR VOLUME 82 fl (80-97); MONOCYTES % (AUTO) 9.1 % (3-13); PLATELET COUNT 122 10^3/uL (150-450); RED BLOOD COUNT 4.33 10^6/uL (3.72-5.28); RED CELL DISTRIBUTION WIDTH 13.6 % (11.5-14.0); SEGMENTED NEUTROPHILS % (AUTO) 78.8 % (42-78); TOTAL CELLS COUNTED % (AUTO) 100 %; WHITE BLOOD COUNT 11.4 10^3/uL (4.0-10.5)
[2019-12-18] MEDS ORDERED: EPHEDRINE SULFATE INJ 50 MG/1 ML AMPULE ONE (11:48)
[2019-12-18] MEDS ORDERED: FENTANYL/BUPIVACAINE/NS/PF 300 MCG/150 ML RTUINJ EPI ONE (11:49)
[2019-12-18] MEDS ORDERED: ROPIVACAINE HCL 0.2% INJ/PF (2 MG/ML) 20 ML SDV ONE (11:49)
[2019-12-18] MEDS ORDERED: OXYTOCIN/0.9 % SODIUM CHLORIDE 30 UNIT/500 ML RTUINJ IV PRN ×2 (12:04→20:02)
[2019-12-18] MEDS: RINGERS SOLUTION,LACTATED 1,000 ML IV PRN ×2 (12:59→21:00)
--- NOTE | 2019-12-18 13:35 | L&D Progress Notes ---
PROGRESS NOTES Datetime Report Generated by CPN: 12/18/2019 13:35 PROGRESS NOTE Impression: Normal Progression of Labor Procedures: Artificial ROM; Sterile Vag Exam Plan: Continue Present Management; Augmentation Informed Consent Obtained: Vaginal Delivery; Risks, Benefits and Alternatives Discussed Vital Signs : Reviewed; Within Normal Limits Comment: S: comfortable with epidural, denies any concerns, no specific requests for delivery O: VSS, cat I tracing, cervix as stated A: IUP @ 39w3d- in labor, stable, progressing AROM-moderate amount of clear fluid P: augment as needed, anticipate delivery, Dr. Mahoney is the OB drone pilot today and aware of pt status VAGINAL EXAM Contractions: 2-4 LAST VAGINAL EXAM-NURSING Nursing Exam Dilitation: 6.0 Nursing Exam Effacement: 100 Nursing Exam Station: -1 MEMBRANES Membranes: Bulging Amniotic Fluid Color: Clear FETUS A Monitoring: External US Decelerations: None FHR Category: Category I Presentation: Vertex SIGNATURE SIGNATURE: [id number];14,[id number];13,[id number] Assignment: Mattie Mahoney MD Signature: with User ID: Dasia : with User ID: Dasia
[2019-12-18] MEDS: PENICILLIN G POTASSIUM 2,500,000 UNIT in DEXTROSE 5%-WATER 50 ML IV SCH ×2 (13:38→16:47)
[2019-12-18] MEDS ORDERED: ONDANSETRON HCL INJ/PF 4 MG/2 ML SDV IV ONE (16:42)
[2019-12-18] MEDS ORDERED: ONDANSETRON HCL INJ/PF 4 MG/2 ML SDV ONE (16:42)
[2019-12-18] MEDS ORDERED: NA PHOS,M-B/NA PHOS,DI-BA (ADULT) 133 ML ENEMA PR PRN (20:02)
[2019-12-18] MEDS ORDERED: GLYCERIN/WITCH HAZEL LEAF 1 EACH MED..WIPE TP PRN (20:02)
[2019-12-18] MEDS ORDERED: ACETAMINOPHEN 325 MG TABLET PO PRN (20:02)
[2019-12-18] MEDS ORDERED: MEASLES,MUMPS&RUBELLA VACC/PF 0.5 ML VIAL SUBCUT PRN (20:02)
[2019-12-18] MEDS ORDERED: ACETAMINOPHEN 650 MG SUPP.RECT PR PRN (20:02)
[2019-12-18] MEDS ORDERED: ZOLPIDEM TARTRATE 5 MG TABLET PO PRN (20:02)
[2019-12-18] MEDS ORDERED: ACETAMINOPHEN WITH CODEINE #3 TABLET PO PRN ×2 (20:02)
[2019-12-18] MEDS ORDERED: BENZOCAINE/MENTHOL AEROSOL SPRAY 56 ML TOP PRN (20:02)
[2019-12-18] MEDS ORDERED: PROMETHAZINE HCL INJ 25 MG/1 ML VIAL IV PRN (20:02)
[2019-12-18] MEDS ORDERED: PROMETHAZINE HCL 25 MG SUPP.RECT PR PRN (20:02)
[2019-12-18] MEDS ORDERED: PSEUDOEPHEDRINE HCL 30 MG TABLET PO PRN (20:02)
[2019-12-18] MEDS ORDERED: DIPHENHYDRAMINE HCL 25 MG CAPSULE PO PRN (20:02)
[2019-12-18] MEDS ORDERED: MAGNESIUM HYDROXIDE SUSP 30 ML UDCUP PO PRN (20:02)
[2019-12-18] MEDS ORDERED: DIPH/PERTUSS(ACELL)/TETANUS VAC/PF 0.5 ML SYR (>=10YO) IM PRN (20:02)
[2019-12-18] MEDS ORDERED: PROMETHAZINE HCL 25 MG TABLET PO PRN (20:02)
[2019-12-18] MEDS ORDERED: DIBUCAINE 1% OINTMENT 28 GM TP PRN (20:02)
[2019-12-18] MEDS ORDERED: METHYLERGONOVINE MALEATE INJ/PF 0.2 MG/1 ML AMPULE IV ONE (20:58)
[2019-12-18] MEDS ORDERED: METHYLERGONOVINE MALEATE INJ/PF 0.2 MG/1 ML AMPULE ONE (20:59)
--- NOTE | 2019-12-18 22:13 | Birth Certificate Data ---
Cert Data Datetime Report Generated by CPN: 12/18/2019 22:13 CERTIFICATE DATA 47a. Care: Yes (12/14/2019 15:22:Kendra Hall RN) 47b. Date of First Visit: 05/14/2019 00:00 (12/14/2019 15:22:Kendra Hall RN) 47c. Date of Last Visit: 12/09/2019 00:00 (12/14/2019 15:22:Kendra Hall RN) 47d. Number of Visits: 11 (12/14/2019 15:22:Kendra Hall RN) 48a. Number of Prev Live Births: 1 (12/14/2019 15:22:Kendra Hall RN) 48b. Now Livin (12/14/2019 15:22:Kendra Hall RN) 48c. Live Births Now : 0 (12/14/2019 15:22:QS system process) 48e. Losses: 0 (12/14/2019 15:22:Kendra Hall RN) RISK FACTORS IN THIS 49a. Diabetes: No (12/14/2019 15:22:Felecia Olivares RN) 49b. Hypertension: No (12/14/2019 15:22:Felecia Olivares RN) 49c. Previous Births: 0 (12/14/2019 15:22:Kendra Hall RN) 49d. Stillborns: No (12/14/2019 15:22:Felecia Olivares RN) 49d. IUGR: No (12/14/2019 15:22:Felecia Olivares RN) 49e. Infertility Treatment: No (12/14/2019 15:22:Felecia Olivares RN) 49f. Previous Cesareans: 0 (12/14/2019 15:22:Kendra Hall RN) Mother's Height 50b. Height Inches: 65 (12/18/2019 05:48:QS system process) Mother's Weight 51a. Pre- Weight (lbs): 156 (12/14/2019 15:22:Kendra Hall RN) 51b. Weight at Delivery (lbs): 194 (12/18/2019 06:13:QS system process) Infections Present/Treated 53a. Gonorrhea: No (12/14/2019 15:22:Felecia Olivares RN) Results this Hospital Visit : Negative (12/14/2019 15:22:Kendra Hall RN) 53b. Syphilis: No (12/14/2019 15:22:Felecia Olivares RN) 53c. Chlamydia: No (12/14/2019 15:22:Felecia Olivares RN) Results this Hospital Visit: Negative (12/14/2019 15:22:Kendra Hall RN) 53d. Hepatitis B: No (12/14/2019 15:22:Felecia Olivares RN) Results this Hospital Visit: Negative (12/14/2019 15:22:Kendra Hall RN) 53e. Hepatitis C: Negative (12/14/2019 15:22:Kendra Hall RN) 53h. Mother Tested for HBsAG: Yes (12/14/2019 15:22:Kendra Hall RN) 53i. Date Tested: 06/21/2019 00:00 (12/14/2019 15:22:Kendra Hall RN) 53j. Test Result: Negative (12/14/2019 15:22:Kendra Hall RN) Obstetric Procedures 54a, b, c. Obstetric Procedures: Ultrasound (12/14/2019 15:22:Felecia Olivares RN) Cigarette Smoking Cigarette Smoking: Never Smoker. [id number] (12/14/2019 15:22:Felecia Olivares RN) 55a. 3 Months Before Preg - Ci (12/14/2019 15:22:Felecia Olivares RN) 55a. Packs: 0 (12/14/2019 15:22:Felecia Olivares RN) 55b. 1st Trimester of Preg- Ci (12/14/2019 15:22:Felecia Olivares RN) 55b. Packs: 0 (12/14/2019 15:22:Felecia Olivares RN) 55c. 2nd Trimester of Preg- Ci (12/14/2019 15:22:Felecia Olivares RN) 55c. Packs: 0 (12/14/2019 15:22:Felecia Olivares RN) 55d. 3rd Trimester of Preg- Ci (12/14/2019 15:22:Felecia Olivares RN) 55d. Packs: 0 (12/14/2019 15:22:Felecia Olivares RN) Onset of Labor 56a. PROM >12 Hrs: 6.25 (12/14/2019 15:22:QS system process) 56b. Precipitous Labor <3 Hrs: 6 (12/14/2019 15:22:QS system process) 56c. Prolonged Labor > 20 Hrs: 6 (12/14/2019 15:22:QS system process) 57a. Induction of Labor: Augmentation (12/14/2019 15:22:Mona Ramirez RN) 57c. Non-Vertex Presentation A: Vertex (12/14/2019 15:22:Mona Ramirez RN) 57d. Steroids - Lung Mat: None (12/14/2019 15:22:Mona Ramirez RN) 57d. Steroids - Lung Mat: Not Applicable (12/14/2019 15:22:Mona Ramirez RN) 57e. Antibiotics During Labor: 12/18/2019 16:45 (12/14/2019 15:22:Mona Ramirez RN) 57f. Mat [place] or Temp >100.4: 98.1 (12/14/2019 15:22:Mona Ramirez RN) 57g. Moderate/Heavy Meconium: Clear (12/18/2019 13:27:Felecia Olivares RN) 57h. Intolerance of Labor: N/A (12/14/2019 15:22:Mona Ramirez RN) 57i. Epidural/Spinal Anesthesia: Epidural (12/14/2019 15:22:Mona Ramirez RN) Method of Delivery 58a. Forceps - Unsuccessful A: N/A (12/14/2019 15:22:Mona Ramirez RN) 58b. Vacuum - Unsuccessful A: N/A (12/14/2019 15:22:Mona Ramirez RN) 58c. Presentation at 58c. Presentation at - A : Vertex (12/14/2019 15:22:Mona Ramirez RN) 58c. Presentation at - A : N/A (12/14/2019 15:22:Mona Ramirez RN) 58c. Presentation at - A : Cephalic (12/18/2019 19:26:Sona Cedillo RN) Final Route and Method of Del 58d. Baby A Route/Delivery: Vaginal (12/14/2019 15:22:Mona Ramirez RN) 58e. Trial of Labor Attempted: No (12/14/2019 15:22:Mona Ramirez RN) 58e. Trial of Labor Attempted A: N/A (12/14/2019 15:22:Mona Ramirez RN) 58e. Trial of Labor Attempted B: N/A (12/14/2019 15:22:Mona Ramirez RN) Maternal Morbidity 59b. 3rd or 4th Degree Lacs: Perineal (12/14/2019 15:22:Mattie Mahoney MD) 59b. 3rd or 4th Degree Lacs: First Degree (12/14/2019 15:22:Mona Ramirez RN) 59b. 3rd or 4th Degree Lacs: Rt labial (12/14/2019 15:22:Mona Ramirez RN) Birthweight Baby A: 3440 (12/14/2019 15:22:Sona Cedillo RN) 60a. Pounds : 7 (12/14/2019 15:22:QS system process) 60b. Ounces: 9 (12/14/2019 15:22:QS system process) 61. GA at Delivery Baby A: 39.3 (12/14/2019 15:22:Mona Ramirez RN) : Full Term- 39- 40.6 Weeks (12/14/2019 15:22:QS system process) 62a. 5 Minute Baby A: 9 (12/14/2019 15:22:QS system process)
--- NOTE | 2019-12-18 22:13 | Delivery Summary ---
Del Sum A-C Datetime Report Generated by CPN: 12/18/2019 22:13 DELIVERY PERSONNEL DELIVERY PERSONNEL: [id number] Delivery Doctor:: Mattie Mahoney MD MANAGER UNIVERSAL:: Kailey Johnston CRNA Labor and Delivery Nurse:: Sona Cedillo RN Nursery Nurse:: ANGELA Adhikari [employer] Salesperson/RUBBER SPLICER: Mahsa Ross, ST MATERNAL INFORMATION Delivery Anesthesia: Epidural Medications After Delivery: Pitocin 30 Units in 500ml NS/D5W; Cytotec 1000mcg Per Rectum/Vagina Estimated Blood Loss (ml): 350 Maternal Complications: None Provider Comments: Called to patients room as she was complete and +2 with urge to push. Pushed through a few contractions and delivered a viable male infant with apgars of 9/9 at one and five minutes respectfully. Uterus was firm but become atonic. Cytotec 1 gm given SC. Bimanual massage of uterus was done and clots were cleared from the uterus. Cord clamping was delayed for 30 seconds as the was vigorous. After cord clamped and cut the was placed skin to skin . BOth infant and MOther were stable . LABOR SUMMARY EDC: 12/22/2019 00:00 No. Babies in Womb: 1 Attempted: No Labor Anesthesia: Epidural LABOR INFORMATION Reason for Induction: Not Applicable Onset of Labor: 12/18/2019 13:27 Complete Dilatation: 12/18/2019 19:26 Oxytocin: Augmentation Group B Beta Strep: Positive Antibiotics # of Doses: 3 Antibiotics Time of Last Dose: 12/18/2019 16:45 Name of Antibiotic Given: Penicillin Steroids Given: None Reason Steroids Not Administered: Not Applicable MEMBRANES Membranes Rupture Method: Artificial Rupture of Membranes: 12/18/2019 13:27 Length of Rupture (hr): 6.25 Amniotic Fluid Color: Clear Amniotic Fluid Amount: Small Amniotic Fluid Odor: Normal STAGES OF LABOR Stage 1 hr: 5 Stage 1 min: 59 Stage 2 hr: 0 Stage 2 min: 16 Stage 3 hr: 0 Stage 3 min: 4 Total Time in Labor hr: 6 Total Time in Labor min: 19 VAGINAL DELIVERY Episiotomy: None Laceration #1: Perineal Laceration Extension #1: First Degree Other Laceration: Rt labial Laceration Repair: Yes Laceration Repair Note: Repaired with 2-0 chromic on SH in running fashion Sponge Count Correct: Yes Sharps Count Correct: Yes CSECTION DELIVERY Primary Indication: N/A CSection Incision: N/A BABY A INFORMATION Delivery Date/Time: 12/18/2019 19:42 Method of Delivery: Vaginal Nurse Controlled Delivery: No Born in Route : No : N/A Forceps: N/A Vacuum Extraction: N/A Shoulder Dystocia : No PRESENTATION/POSITION BABY A Presentation: Cephalic Cephalic Presentation: Vertex Vertex Position: Left Occipital Anterior Breech Presentation: N/A PLACENTA INFORMATION BABY A Placenta Delivery Time : 12/18/2019 19:46 Placenta Method of Delivery: Spontaneous Placenta Status: Delivered SCORES BABY A Heart Rate 1 min: >100 bpm Resp Effort 1 min: Good Cry Reflex Irritability 1 min: Cough or Sneeze or Pulls Away Muscle Tone 1 min: Active Motion Color 1 min: Body Scribner, Extremities Blue Resuscitation Effort 1 min: Tactile Stimulation SCORE 1 MIN: 9 Heart Rate 5 min: >100 bpm Resp Effort 5 min: Good Cry Reflex Irritability 5 min: Cough or Sneeze or Pulls Away Muscle Tone 5 min: Active Motion Color 5 min: Body Scribner, Extremities Blue Resuscitation Effort 5 min: Tactile Stimulation SCORE 5 MIN: 9 INFANT INFORMATION BABY A Gestational Age at Delivery: 39.3 Gestational Status: Full Term- 39- 40.6 Weeks Infant Outcome : Liveborn Condition : Stable Sex: Male IDENTIFICATION BABY A Infant Verification Date/Time: 12/18/2019 19:59 ID Band Number: [id number] Mother's Name Verified: Yes Infant RN Verifying : Alejandro RamirezJORI Additional Verifying Personnel: ST Stuart WEIGHT/LENGTH BABY A Birthweight (gm): 3440 Infant Weight (lb): 7 Weight (oz): 9 Infant Length (in): 20.25 Infant Length (cm): 51.44 CORD INFORMATION BABY A No. Cord Vessels: 3 Nuchal Cord : N/A Cord Blood Taken: N/A Infant Suction: None ASSESSMENT BABY A Infant Complications: None Complications- Other: Terminal meconium Physical Findings at Delivery: Caput Succedaneum; Molding of the Head Infant Respirations: Appears Normal Skin to Skin: Yes Dresser Tender/ALS Called : No Infant Care By: DPilo Lopeznce, RNC Transferred To: Remains with Mother BABY B INFORMATION : N/A SIGNATURES Signature: with User ID: [email or web address] : with User ID: [email or web address]
[2019-12-19] MEDS ORDERED: METHYLERGONOVINE MALEATE 0.2 MG TABLET PO SCH
[2019-12-19] MEDS ORDERED: METHYLERGONOVINE MALEATE 0.2 MG TABLET ONE (03:02)
[2019-12-19] MEDS ORDERED: IBUPROFEN 800 MG TABLET ONE (06:22)
[2019-12-19] MEDS: IBUPROFEN 800 MG TABLET PO SCH ×4 (06:29→21:19)
[2019-12-19 07:44] LABS: HEMATOCRIT 31.4 % (36.0-47.0); HEMOGLOBIN 10.6 g/dL (12.0-15.5); MEAN CORPUSCULAR HEMOGLOBIN 27.4 pg (27.0-33.4); MEAN CORPUSCULAR HGB CONC 33.6 g/dL (32.0-36.0); MEAN CORPUSCULAR VOLUME 82 fl (80-97); PLATELET COUNT 127 10^3/uL (150-450); RED BLOOD COUNT 3.85 10^6/uL (3.72-5.28); RED CELL DISTRIBUTION WIDTH 13.4 % (11.5-14.0); WHITE BLOOD COUNT 17.7 10^3/uL (4.0-10.5)
[2019-12-19] MEDS: PENICILLIN G POTASSIUM 2,500,000 UNIT in DEXTROSE 5%-WATER 50 ML IV SCH (07:48)
[2019-12-19] MEDS: FAMOTIDINE 20 MG TABLET PO SCH ×3 (07:48→21:18)
[2019-12-19] MEDS: PRENATAL VITAMIN W DHA CAPSULE PO SCH (10:07)
[2019-12-19] MEDS: DOCUSATE SODIUM 100 MG CAPSULE PO SCH ×2 (10:08→17:32)
[2019-12-19] MEDS: FERROUS SULFATE 325 MG TABLET PO SCH ×2 (10:09→17:32)
[2019-12-19] MEDS: SENNOSIDES/DOCUSATE 8.6-50 MG 1 EACH TABLET PO SCH (10:09)
[2019-12-19] MEDS: METHYLERGONOVINE MALEATE 0.2 MG TABLET PO SCH ×3 (10:17→21:18)
--- NOTE | 2019-12-19 13:31 | PDOC PROGRESS REPORT ---
Subjective-OB Progress Note for:: 12/19/19 Subjective: reports bleeding slowing, pain controlled with current meds. denies needs Physical Exam (OB) Vital Signs: Temp Pulse Resp BP Pulse Ox 98.1 F 64 16 113/46 L 97 12/19/19 08:37 12/19/19 08:37 12/19/19 08:37 12/19/19 08:37 12/19/19 08:37 Intake & Output 12/18/19 12/19/19 12/20/19 06:59 06:59 06:59 Intake Total 1000 120 Balance 1000 120 Weight 88.2 kg - Maternal Morbidity 59. Maternal Morbidity (serious complications experinced by the mother associated with labor and delivery: None of the above - Abdomen Description: Soft Fundal Description: Firm, Midline Fundal Height: u/u - u/2 - Abdominal Distension: No distension Tenderness: Nontender - Extremities Lower extremities: Devon's sign - neg Calf: Normal, Nontender Objective-Diagnostic Laboratory: 12/19/19 07:24 12/19/19 07:24 WBC 17.7 H RBC 3.85 Hgb 10.6 L Hct 31.4 L MCV 82 MCH 27.4 MCHC 33.6 RDW 13.4 Plt Count 127 L Assessment and Plan(PN) - Time Spent with Patient Time with patient: Less than 15 minutes Medications reviewed and adjusted accordingly: Yes - Disposition Anticipated Discharge Disposition: Home, Self Care Anticipated Discharge Timeframe: within 24 hours
[2019-12-19] MEDS ORDERED: DIPH/PERTUSS(ACELL)/TETANUS VAC/PF 0.5 ML SYR (>=10YO) IM PRN (15:30)
[2019-12-19] MEDS ORDERED: MEASLES,MUMPS&RUBELLA VACC/PF 0.5 ML VIAL SUBCUT PRN (15:30)
[2019-12-19] MEDS ORDERED: PROMETHAZINE HCL INJ 25 MG/1 ML VIAL IV PRN (15:30)
[2019-12-20] MEDS: METHYLERGONOVINE MALEATE 0.2 MG TABLET PO SCH ×2 (02:18→09:49)
[2019-12-20] MEDS: IBUPROFEN 800 MG TABLET PO SCH (05:43)
[2019-12-20 08:23] VITALS: BP 121/61
[2019-12-20] MEDS: DOCUSATE SODIUM 100 MG CAPSULE PO SCH (09:49)
[2019-12-20] MEDS: FERROUS SULFATE 325 MG TABLET PO SCH (09:49)
[2019-12-20] MEDS: FAMOTIDINE 20 MG TABLET PO SCH (09:49)
[2019-12-20] MEDS: SENNOSIDES/DOCUSATE 8.6-50 MG 1 EACH TABLET PO SCH (09:49)
[2019-12-20] MEDS: PRENATAL VITAMIN W DHA CAPSULE PO SCH (09:52)
--- NOTE | 2019-12-20 11:15 | PDOC DISCHARGE SUMMARY ---
Impression - Admit/DC Date/PCP Admission Date/Primary Care Provider: 12/18/19 08:22 Discharge Date: 12/20/19 - PP Day #2, doing well, O+. Rubella Immune, , UOB, no complaints - Discharge Diagnosis (1) Acute blood loss anemia Is this a current diagnosis for this admission?: Yes (2) hemorrhage Is this a current diagnosis for this admission?: Yes (3) Vaginal delivery Is this a current diagnosis for this admission?: Yes - Additional Information Resuscitation Status: Full Code Discharge Diet: As Tolerated, Regular Discharge Activity: Activity As Tolerated, No Lifting Over 10 Pounds, Pelvic Rest Prescriptions: Ferrous Sulfate [Feosol 325 mg Tablet] 325 mg PO DAILY #30 tablet Ibuprofen [Motrin 800 mg Tablet] 800 mg PO Q8 #60 tablet Home Medications: No122/Iron/Folic Acid [ Multi Tablet] 1 tab PO DAILY 11/25/16 Ferrous Sulfate [Feosol 325 mg Tablet] 325 mg PO DAILY #30 tablet 12/20/19 Ibuprofen [Motrin 800 mg Tablet] 800 mg PO Q8 #60 tablet 12/20/19 HPI Reason(s) for Admission: Onset of Labor Procedures: Ultrasound Intrapartum Procedure(s): Spontaneous Vaginal Delivery Complication(s): Laceration-Periurethral Laceration-Degree: 1st Hospital Course 59. Maternal Morbidity (serious complications experinced by the mother associated with labor and delivery: None of the above Results Laboratory Results: WBC 17.7 10^3/uL (4.0-10.5) H 12/19/19 07:24 RBC 3.85 10^6/uL (3.72-5.28) 12/19/19 07:24 Hgb 10.6 g/dL (12.0-15.5) L 12/19/19 07:24 Hct 31.4 % (36.0-47.0) L 12/19/19 07:24 MCV 82 fl (80-97) 12/19/19 07:24 MCH 27.4 pg (27.0-33.4) 12/19/19 07:24 MCHC 33.6 g/dL (32.0-36.0) 12/19/19 07:24 RDW 13.4 % (11.5-14.0) 12/19/19 07:24 Plt Count 127 10^3/uL (150-450) L 12/19/19 07:24 Lymph % (Auto) 11.3 % (13-45) L 12/18/19 08:55 [place] % (Auto) 9.1 % (3-13) 12/18/19 08:55 Eos % (Auto) 0.2 % (0-6) 12/18/19 08:55 Baso % (Auto) 0.6 % (0-2) 12/18/19 08:55 Absolute Neuts (auto) 9.0 10^3/uL (1.7-8.2) H 12/18/19 08:55 Absolute Lymphs (auto) 1.3 10^3/uL (0.5-4.7) 12/18/19 08:55 Absolute Monos (auto) 1.0 10^3/uL (0.1-1.4) 12/18/19 08:55 Absolute Eos (auto) 0.0 10^3/uL (0.0-0.6) 12/18/19 08:55 Absolute Basos (auto) 0.1 10^3/uL (0.0-0.2) 12/18/19 08:55 Seg Neutrophils % 78.8 % (42-78) H 12/18/19 08:55 Urine Color YELLOW 12/18/19 05:45 Urine Appearance SLIGHTLY-CLOUDY 12/18/19 05:45 Urine pH 7.0 (5.0-9.0) 12/18/19 05:45 Ur Specific [place] 1.008 12/18/19 05:45 Urine Protein NEGATIVE mg/dL (NEGATIVE) 12/18/19 05:45 Urine Glucose (UA) NEGATIVE mg/dL (NEGATIVE) 12/18/19 05:45 Urine Ketones NEGATIVE mg/dL (NEGATIVE) 12/18/19 05:45 Urine Blood NEGATIVE (NEGATIVE) 12/18/19 05:45 Urine Nitrite NEGATIVE (NEGATIVE) 12/18/19 05:45 Urine Bilirubin NEGATIVE (NEGATIVE) 12/18/19 05:45 Urine Urobilinogen NEGATIVE mg/dL (<2.0) 12/18/19 05:45 Ur Leukocyte Esterase TRACE (NEGATIVE) H 12/18/19 05:45 Urine Ascorbic Acid NEGATIVE (NEGATIVE) 12/18/19 05:45 Urine Opiates Screen NEGATIVE 12/18/19 05:45 Urine Methadone Screen NEGATIVE 12/18/19 05:45 Ur Barbiturates Screen NEGATIVE 12/18/19 05:45 Ur Phencyclidine Scrn NEGATIVE 12/18/19 05:45 Ur Amphetamines Screen NEGATIVE 12/18/19 05:45 U Benzodiazepines Scrn NEGATIVE 12/18/19 05:45 Urine Cocaine Screen NEGATIVE 12/18/19 05:45 U Marijuana (THC) Screen NEGATIVE 12/18/19 05:45 RPR NONREACTIVE (NONREACTIVE) 12/18/19 08:55 Blood Type O POSITIVE 12/18/19 08:55 Antibody Screen NEGATIVE 12/18/19 08:55 Plan Plan of Treatment: d/c home, f/up with [facility] in 4 wks Time Spent: Less than 30 Minutes
== END 2019-12-20 13:15 | disposition home or self-care (01) | DRG 807 ==
LOC: LC 05:31 → LR 08:22 → 2S 12-19 08:30
PROVIDERS: ADMIT Obstetrics & Gynecology; ATTEND Obstetrics & Gynecology
PROC: 10E0XZZ Delivery of Products of Conception, External Approach (ICD-10-PCS; principal; 2019-12-18)
PROC: 0HQ9XZZ Repair Perineum Skin, External Approach (ICD-10-PCS; 2019-12-18)
DX: O99.824 Streptococcus B carrier state complicating childbirth (principal); Z37.0 Single live birth; O70.0 First degree perineal laceration during delivery; O77.0 Labor and delivery complicated by meconium in amniotic fluid; O72.1 Other immediate postpartum hemorrhage; O99.344 Other mental disorders complicating childbirth; F41.8 Other specified anxiety disorders; F31.9 Bipolar disorder, unspecified; F90.9 Attention-deficit hyperactivity disorder, unspecified type; Z3A.39 39 weeks gestation of pregnancy
CPT/HCPCS: 1967; 36415; 80307; 81005; 85025; 85027; 86592; 86850; 86900; 86901; J2210; J2405; J2540; J2590; J2795; J3010; J3490; J7060